=== PATIENT | female | born 1960 | race Caucasian/White ===

== ENCOUNTER 2023-06-21 22:43 | Inpatient (IN) | payer OTHER ==
[~2023-06-21] VITALS: Ht 165.1 cm; Wt 160.6 kg
[2023-06-21 22:50] VITALS: BP 131/65; PULSE 93; RESP 22; TEMP 98.2; O2SAT 99
[2023-06-21 23:14] VITALS: PULSE 86; RESP 24; O2SAT 97
[2023-06-21 23:53] LABS: BASOPHILS # (AUTO) 0.1 K/uL (0.00-0.22); BASOPHILS % (AUTO) 0.6 % (0.0-2.0); EOSINOPHILS # (AUTO) 0.3 K/uL (0-0.4); EOSINOPHILS % (AUTO) 3.2 % (0.0-4.0); HEMATOCRIT 27.7 % (36-48); HEMOGLOBIN 9.2 g/dL (12.0-16.0); LYMPHOCYTES # (AUTO) 1.6 K/uL (2.5-16.5); LYMPHOCYTES % (AUTO) 15.2 % (20.5-51.1); MEAN CORPUSCULAR HEMOGLOBIN 37 pg (27-31); MEAN CORPUSCULAR HGB CONC 33 g/dL (33-37); MONOCYTES # (AUTO) 1.1 K/uL (0.8-1.0); MONOCYTES % (AUTO) 10.3 % (1.7-9.3); NEUTROPHILS # (AUTO) 7.3 K/uL (1.8-7.7); NEUTROPHILS % (AUTO) 70.7 % (42.2-75.2); PLATELET COUNT (AUTO) 208 K/uL (140-450); RED BLOOD CELL COUNT(AUTO) 2.52 MIL/uL (4.20-5.40); RED CELL DISTRIBUTION WIDTH 19.2 % (11.6-13.7); WHITE BLOOD COUNT (AUTO) 10.3 K/uL (4.8-10.8)
[2023-06-22] VITALS (16 sets, daily range): BP systolic 86–155; BP diastolic 38–78; PULSE 50–90; RESP 14–23; TEMP 97.2–98.7; O2SAT 94–100
[2023-06-22 00:12] LABS: FLU A ANTIGEN negative (NEGATIVE); FLU B ANTIGEN negative (NEGATIVE)
[2023-06-22 00:15] LABS: ALBUMIN 2.2 g/dL (3.4-5.0); CARBON DIOXIDE 31.5 mmol/L (21-32); CREATININE 3.7 mg/dL (0.6-1.3); POTASSIUM 3.5 mmol/L (3.5-5.1); TOTAL BILIRUBIN 0.3 mg/dL (0.0-1.0); TOTAL PROTEIN, SERUM 7.6 g/dL (6.4-8.2)
[2023-06-22 00:29] LABS: CALCIUM 12.5 mg/dL (8.5-10.1)
[2023-06-22] MEDS ORDERED: MORPHINE SULFATE 4 MG/ML SYR IVP ONE (01:10)
[2023-06-22] MEDS ORDERED: VANCOMYCIN 1,000 MG in DEXTROSE 5% 250 ML IV ONE (01:15)
[2023-06-22] MEDS ORDERED: AZITHROMYCIN 500 MG in DEXTROSE 5% 250 ML IV ONE (01:15)
[2023-06-22] MEDS ORDERED: AZTREONAM 2,000 MG in DEXTROSE 5% 100 ML IV SCH (01:15)
[2023-06-22] MEDS ORDERED: NACL 0.9% 1,000 ML IV ONE (01:20)
[2023-06-22] MEDS ORDERED: AZTREONAM 1,000 MG VIAL ONE (01:31)
[2023-06-22] MEDS ORDERED: AZITHROMYCIN 500 MG INJ VIAL IV ONE (02:28)
[2023-06-22] MEDS ORDERED: CLONIDINE HYDROCHLORIDE 0.1 MG TAB PO ONE (02:30)
[2023-06-22] MEDS ORDERED: ONDANSETRON 4 MG/2 ML VIAL IVP ONE (02:30)
[2023-06-22] MEDS ORDERED: HYDROcodone/APAP 5/325 MG 1 TAB TAB PO ONE (02:30)
[2023-06-22] MEDS ORDERED: MORPHINE SULFATE 2 MG/ML SYR IVP PRN (02:50)
[2023-06-22] MEDS ORDERED: CLONIDINE HYDROCHLORIDE 0.1 MG TAB GT PRN (02:50)
[2023-06-22] MEDS ORDERED: VANCOMYCIN 1,000 MG VIAL ONE (02:57)
[2023-06-22 03:10] LABS: APPEARANCE,URINE HAZY (CLEAR); BILIRUBIN,URINE NEGATIVE (NEGATIVE); BLOOD, URINE 2+ (NEGATIVE); COLOR,URINE YELLOW (YELLOW); LEUKOCYTE ESTERASE ,URINE 3+ (NEGATIVE); NITRITE, URINE POSITIVE (NEGATIVE); PROTEIN,URINE 2+ (NEGATIVE); UGLUCOSE NEGATIVE (NEGATIVE); UROBILINOGEN,URINE 0.2 EU/dL (0.2 - 1)
[2023-06-22 03:33] LABS: RBC,URINE 11-20 (MOD) /HPF (0-5)
[2023-06-22 03:34] LABS: BACTERIA,URINE 2+ /HPF (None Seen); CALCIUM OXALATE CRYSTALS,UR 0-10 /HPF (None Seen); SQUAMOUS EPITHELIAL CELL,UR 0-3 (FEW) /LPF (0-3 (FEW)); WBC,URINE >25 (MANY) /HPF (0-5)
[2023-06-22] MEDS ORDERED: MIDODRINE 5 MG TAB ONE ×3 (04:19→05:03)
[2023-06-22] MEDS ORDERED: CRUSHER, PILL MC ONE (04:21)
[2023-06-22] MEDS ORDERED: NOREPINEPHRINE 4 MG in DEXTROSE 5% 250 ML IV PRN (04:45)
[2023-06-22] MEDS ORDERED: NOREPINEPHRINE 4 MG/4 ML VIAL IV ONE ×2 (04:48)
[2023-06-22] MEDS ORDERED: BUS5 GT (05:00)
[2023-06-22] MEDS ORDERED: ASPI-1822 GT (05:00)
[2023-06-22] MEDS ORDERED: LEVO0.155 GT (05:00)
[2023-06-22] MEDS ORDERED: PRO5 GT (05:00)
[2023-06-22] MEDS ORDERED: TRAZ-471 GT (05:00)
[2023-06-22] MEDS ORDERED: MONT-72 GT (05:00)
[2023-06-22] MEDS ORDERED: KEP500L GT (05:00)
[2023-06-22] MEDS ORDERED: HEPA500056 SQ (05:00)
[2023-06-22] MEDS ORDERED: GABA-636 GT (05:00)
[2023-06-22] MEDS ORDERED: LANS15EC28 GT (05:00)
[2023-06-22] MEDS ORDERED: AMIO200T62 GT (05:00)
[2023-06-22] MEDS ORDERED: ALBUMIN HUMAN 25% 100 ML IV ONE ×2 (05:15)
[2023-06-22] MEDS ORDERED: MIDODRINE 5 MG TAB PO SCH (07:00)
[2023-06-22] MEDS: MIDODRINE 5 MG TAB GT SCH ×3 (07:00→18:26)
[2023-06-22] MEDS: ALBUTEROL SULFATE/IPRATROPIU 3 ML SOL IH SCH ×3 (07:42→20:51)
[2023-06-22] MEDS ORDERED: NON-FORMULARY ITEM (Trazodone HCl 100 MG) GT SCH (09:00)
[2023-06-22] MEDS ORDERED: MIDODRINE 5 MG TAB GT SCH (09:00)
[2023-06-22] MEDS: AMIODARONE 200 MG TAB GT SCH (09:00)
[2023-06-22] MEDS: ASPIRIN 81 MG TAB.CHEW GT SCH (10:15)
[2023-06-22] MEDS: busPIRone 5 MG TAB GT SCH ×3 (10:15→18:26)
[2023-06-22] MEDS: GABAPENTIN 100 MG CAP GT SCH (10:16)
[2023-06-22] MEDS: levETIRAcetam 100 MG/ML ORASYR GT SCH ×2 (10:16→21:22)
[2023-06-22] MEDS: MONTELUKAST SODIUM 10 MG TAB GT SCH (10:16)
[2023-06-22] MEDS: ACETAMINOPHEN 650 MG/20.3 ML UDC PO PRN (10:17)
[2023-06-22] MEDS ORDERED: LEVOTHYROXINE 0.05 MG TAB ONE (10:31)
[2023-06-22] MEDS ORDERED: LEVOTHYROXINE 0.1 MG TAB ONE (10:31)
[2023-06-22] MEDS: LEVOTHYROXINE 0.075 MG TAB GT SCH (10:32)
[2023-06-22] MEDS: NOREPINEPHRINE 4 MG in DEXTROSE 5% 250 ML IV PRN ×3 (13:46→21:58)
[2023-06-22] MEDS: HYDROcodone/APAP 5/325 MG 1 TAB TAB GT PRN (13:58)
[2023-06-22] MEDS: MORPHINE SULFATE 2 MG/ML SYR IVP PRN (18:35)
[2023-06-22] MEDS: traZODone 50 MG TAB GT SCH (21:23)
[2023-06-23] VITALS (44 sets, daily range): BP systolic 59–176; BP diastolic 22–104; PULSE 61–123; RESP 14–33; TEMP 95.1–98.4; O2SAT 87–100
[2023-06-23] MEDS: ALBUTEROL SULFATE/IPRATROPIU 3 ML SOL IH SCH ×5 (01:08→23:55)
[2023-06-23] MEDS: NOREPINEPHRINE 4 MG in DEXTROSE 5% 250 ML IV PRN ×4 (01:42→12:05)
[2023-06-23] MEDS: MORPHINE SULFATE 2 MG/ML SYR IVP PRN ×3 (03:19→23:29)
[2023-06-23] MEDS: MIDODRINE 5 MG TAB GT SCH ×2 (06:01→12:06)
[2023-06-23] MEDS ORDERED: NOREPINEPHRINE 4 MG/4 ML VIAL IV ONE (06:20)
[2023-06-23 08:59] LABS: BASOPHILS # (AUTO) 0.1 K/uL (0.00-0.22); BASOPHILS % (AUTO) 0.5 % (0.0-2.0); EOSINOPHILS # (AUTO) 0.4 K/uL (0-0.4); EOSINOPHILS % (AUTO) 2.9 % (0.0-4.0); HEMATOCRIT 26.8 % (36-48); LYMPHOCYTES # (AUTO) 1.1 K/uL (2.5-16.5); LYMPHOCYTES % (AUTO) 9.2 % (20.5-51.1); MEAN CORPUSCULAR HEMOGLOBIN 36 pg (27-31); MEAN CORPUSCULAR HGB CONC 34 g/dL (33-37); MEAN CORPUSCULAR VOLUME 108.3 fL (80-94); MONOCYTES # (AUTO) 1.2 K/uL (0.8-1.0); MONOCYTES % (AUTO) 10.1 % (1.7-9.3); NEUTROPHILS # (AUTO) 9.5 K/uL (1.8-7.7); NEUTROPHILS % (AUTO) 77.3 % (42.2-75.2); PLATELET COUNT (AUTO) 210 K/uL (140-450); RED BLOOD CELL COUNT(AUTO) 2.48 MIL/uL (4.20-5.40); RED CELL DISTRIBUTION WIDTH 19.3 % (11.6-13.7); WHITE BLOOD COUNT (AUTO) 12.2 K/uL (4.8-10.8)
[2023-06-23] MEDS: levETIRAcetam 100 MG/ML ORASYR GT SCH ×2 (09:13→20:34)
[2023-06-23] MEDS: AMIODARONE 200 MG TAB GT SCH (09:13)
[2023-06-23] MEDS: ASPIRIN 81 MG TAB.CHEW GT SCH ×2 (09:14→09:19)
[2023-06-23] MEDS: GABAPENTIN 100 MG CAP GT SCH (09:15)
[2023-06-23] MEDS: busPIRone 5 MG TAB GT SCH ×3 (09:17→17:53)
[2023-06-23] MEDS: HYDROcodone/APAP 5/325 MG 1 TAB TAB GT PRN (09:17)
[2023-06-23 09:20] LABS: ANION GAP 13.8 (8-16); CARBON DIOXIDE 27.6 mmol/L (21-32); POTASSIUM 3.4 mmol/L (3.5-5.1)
[2023-06-23 09:28] LABS: CALCIUM 12.2 mg/dL (8.5-10.1); CREATININE 4.1 mg/dL (0.6-1.3)
[2023-06-23] MEDS: LEVOTHYROXINE 0.075 MG TAB GT SCH (09:43)
[2023-06-23] MEDS: MONTELUKAST SODIUM 10 MG TAB GT SCH (09:44)
[2023-06-23] MEDS ORDERED: NYSTATIN POW 100 MU/GM 15 GM BTL TP PRN (12:30)
[2023-06-23] MEDS ORDERED: ALGINATE ROPE MC PRN (12:30)
[2023-06-23] MEDS ORDERED: Z-GUARD PASTE TP PRN (12:30)
[2023-06-23] MEDS ORDERED: FOAM DRESSING TP PRN (12:30)
[2023-06-23] MEDS: Z-GUARD PASTE TP SCH (13:00)
[2023-06-23] MEDS ORDERED: VANCOMYCIN PER PHARMACY MC PRN ×2 (13:25→13:30)
[2023-06-23] MEDS: ALGINATE ROPE MC SCH (13:52)
[2023-06-23] MEDS: FOAM DRESSING TP SCH (13:53)
[2023-06-23] MEDS: NYSTATIN POW 100 MU/GM 15 GM BTL TP SCH (14:55)
[2023-06-23] MEDS: AZITHROMYCIN 500 MG in DEXTROSE 5% 250 ML IV SCH (16:28)
[2023-06-23] MEDS: NOREPINEPHRINE 16 MG in DEXTROSE 5% 250 ML IV PRN ×2 (16:33→18:21)
[2023-06-23] MEDS: AZTREONAM 2,000 MG in DEXTROSE 5% 100 ML IV SCH (17:50)
[2023-06-23] MEDS ORDERED: VANCOMYCIN 1,000 MG in DEXTROSE 5% 250 ML IV SCH (18:00)
[2023-06-23] MEDS: traZODone 50 MG TAB GT SCH (20:34)
[2023-06-23] MEDS ORDERED: MIDODRINE 5 MG TAB GT SCH (21:00)
[2023-06-23] MEDS ORDERED: EPOETIN ALFA-EPBX 10,000 UNITS/ML VIAL ONE (22:30)
[2023-06-23] MEDS: EPOETIN ALFA-EPBX 10,000 UNITS/ML VIAL IV SCH (23:15)
[2023-06-24] VITALS (32 sets, daily range): BP systolic 88–160; BP diastolic 54–78; PULSE 70–90; RESP 16–31; TEMP 96.7–98.3; O2SAT 95–100
[2023-06-24] MEDS: Z-GUARD PASTE TP SCH ×2 (01:04→13:00)
[2023-06-24] MEDS: NYSTATIN POW 100 MU/GM 15 GM BTL TP SCH ×2 (01:04→13:00)
[2023-06-24] MEDS: AZTREONAM 2,000 MG in DEXTROSE 5% 100 ML IV SCH ×2 (02:27→16:07)
[2023-06-24] MEDS: HYDROcodone/APAP 5/325 MG 1 TAB TAB GT PRN ×3 (03:07→20:21)
[2023-06-24 05:19] LABS: ANION GAP 12.4 (8-16); CALCIUM 11.4 mg/dL (8.5-10.1); CARBON DIOXIDE 26.8 mmol/L (21-32); CREATININE 2.9 mg/dL (0.6-1.3); POTASSIUM 3.2 mmol/L (3.5-5.1)
[2023-06-24 05:20] LABS: BASOPHILS % (AUTO) 0.2 % (0.0-2.0); EOSINOPHILS # (AUTO) 0.4 K/uL (0-0.4); EOSINOPHILS % (AUTO) 3.2 % (0.0-4.0); HEMATOCRIT 24.9 % (36-48); HEMOGLOBIN 8.4 g/dL (12.0-16.0); LYMPHOCYTES # (AUTO) 1.1 K/uL (2.5-16.5); LYMPHOCYTES % (AUTO) 9.2 % (20.5-51.1); MEAN CORPUSCULAR HEMOGLOBIN 37 pg (27-31); MEAN CORPUSCULAR HGB CONC 34 g/dL (33-37); MEAN CORPUSCULAR VOLUME 109.2 fL (80-94); MONOCYTES # (AUTO) 1.3 K/uL (0.8-1.0); MONOCYTES % (AUTO) 10.8 % (1.7-9.3); NEUTROPHILS % (AUTO) 76.6 % (42.2-75.2); PLATELET COUNT (AUTO) 177 K/uL (140-450); RED BLOOD CELL COUNT(AUTO) 2.28 MIL/uL (4.20-5.40); RED CELL DISTRIBUTION WIDTH 18.7 % (11.6-13.7); WHITE BLOOD COUNT (AUTO) 11.7 K/uL (4.8-10.8)
[2023-06-24] MEDS ORDERED: MAG SULF 2000 MG/WATER PREMIX 50 ML IV PRN (06:00)
[2023-06-24] MEDS ORDERED: ACETAMINOPHEN 325 MG TAB PO PRN (06:00)
[2023-06-24] MEDS ORDERED: DOCUSATE SODIUM 100 MG GELCAP PO PRN (06:00)
[2023-06-24] MEDS ORDERED: POTASSIUM CHLORIDE 10 MEQ TABER PO PRN (06:00)
[2023-06-24] MEDS ORDERED: ZOLPIDEM 10 MG TAB PO PRN (06:00)
[2023-06-24] MEDS: levETIRAcetam 100 MG/ML ORASYR GT SCH ×2 (08:56→20:18)
[2023-06-24] MEDS: busPIRone 5 MG TAB GT SCH ×3 (08:56→17:09)
[2023-06-24] MEDS: LEVOTHYROXINE 0.075 MG TAB GT SCH (08:57)
[2023-06-24] MEDS: MIDODRINE 5 MG TAB GT SCH ×3 (08:57→17:09)
[2023-06-24] MEDS: AMIODARONE 200 MG TAB GT SCH (08:58)
[2023-06-24] MEDS: GABAPENTIN 100 MG CAP GT SCH (08:58)
[2023-06-24] MEDS: MONTELUKAST SODIUM 10 MG TAB GT SCH (08:59)
[2023-06-24] MEDS: PANTOPRAZOLE 40 MG INJ VIAL IVP SCH (09:00)
[2023-06-24] MEDS: ALBUTEROL SULFATE/IPRATROPIU 3 ML SOL IH SCH ×3 (12:58→19:03)
[2023-06-24] MEDS: ALGINATE ROPE MC SCH (13:00)
[2023-06-24] MEDS: FOAM DRESSING TP SCH (13:00)
[2023-06-24] MEDS: ACETAMINOPHEN 650 MG/20.3 ML UDC PO PRN (14:10)
[2023-06-24] MEDS: AZITHROMYCIN 500 MG in DEXTROSE 5% 250 ML IV SCH (14:12)
[2023-06-24] MEDS: NOREPINEPHRINE 16 MG in DEXTROSE 5% 250 ML IV PRN (18:49)
[2023-06-24] MEDS: traZODone 50 MG TAB GT SCH (20:20)
[2023-06-24] MEDS: MEROPENEM 500 MG in NACL 0.9% 50 ML IV SCH (20:22)
[2023-06-25] VITALS (45 sets, daily range): BP systolic 95–169; BP diastolic 52–107; PULSE 68–100; RESP 16–45; TEMP 97.2–98.8; O2SAT 93–100
[2023-06-25] MEDS: ALBUTEROL SULFATE/IPRATROPIU 3 ML SOL IH SCH ×4 (00:28→19:34)
[2023-06-25] MEDS: MORPHINE SULFATE 2 MG/ML SYR IVP PRN ×3 (01:23→19:27)
[2023-06-25] MEDS: NYSTATIN POW 100 MU/GM 15 GM BTL TP SCH ×2 (01:31→13:12)
[2023-06-25] MEDS: Z-GUARD PASTE TP SCH ×2 (01:32→13:12)
[2023-06-25 06:30] LABS: BASOPHILS # (AUTO) 0.1 K/uL (0.00-0.22); BASOPHILS % (AUTO) 0.6 % (0.0-2.0); EOSINOPHILS # (AUTO) 0.6 K/uL (0-0.4); HEMATOCRIT 24.4 % (36-48); HEMOGLOBIN 8.2 g/dL (12.0-16.0); LYMPHOCYTES # (AUTO) 1.2 K/uL (2.5-16.5); LYMPHOCYTES % (AUTO) 10.5 % (20.5-51.1); MEAN CORPUSCULAR HEMOGLOBIN 36 pg (27-31); MEAN CORPUSCULAR HGB CONC 34 g/dL (33-37); MEAN CORPUSCULAR VOLUME 107.7 fL (80-94); MONOCYTES # (AUTO) 1.2 K/uL (0.8-1.0); MONOCYTES % (AUTO) 10.6 % (1.7-9.3); NEUTROPHILS # (AUTO) 8.1 K/uL (1.8-7.7); NEUTROPHILS % (AUTO) 73.3 % (42.2-75.2); PLATELET COUNT (AUTO) 184 K/uL (140-450); RED BLOOD CELL COUNT(AUTO) 2.27 MIL/uL (4.20-5.40); RED CELL DISTRIBUTION WIDTH 18.8 % (11.6-13.7)
[2023-06-25 06:42] LABS: ALBUMIN 1.9 g/dL (3.4-5.0); CARBON DIOXIDE 25.5 mmol/L (21-32); CREATININE 3.6 mg/dL (0.6-1.3); POTASSIUM 3.5 mmol/L (3.5-5.1); TOTAL BILIRUBIN 0.3 mg/dL (0.0-1.0); TOTAL PROTEIN, SERUM 6.6 g/dL (6.4-8.2)
[2023-06-25 06:45] LABS: CALCIUM 12.5 mg/dL (8.5-10.1)
[2023-06-25] MEDS: PANTOPRAZOLE 40 MG INJ VIAL IVP SCH (08:50)
[2023-06-25] MEDS: levETIRAcetam 100 MG/ML ORASYR GT SCH ×2 (08:50→21:30)
[2023-06-25] MEDS: EPOETIN ALFA-EPBX 10,000 UNITS/ML VIAL IV SCH (08:51)
[2023-06-25] MEDS: ASPIRIN 81 MG TAB.CHEW GT SCH (08:51)
[2023-06-25] MEDS: busPIRone 5 MG TAB GT SCH ×3 (08:52→17:44)
[2023-06-25] MEDS: MONTELUKAST SODIUM 10 MG TAB GT SCH (08:52)
[2023-06-25] MEDS: AMIODARONE 200 MG TAB GT SCH (08:52)
[2023-06-25] MEDS: MEROPENEM 500 MG in NACL 0.9% 50 ML IV SCH ×2 (08:54→21:31)
[2023-06-25] MEDS ORDERED: EPOETIN ALFA-EPBX 10,000 UNITS/ML VIAL IV SCH (09:00)
[2023-06-25] MEDS: MIDODRINE 5 MG TAB GT SCH ×3 (09:30→17:44)
[2023-06-25] MEDS: LEVOTHYROXINE 0.075 MG TAB GT SCH (09:30)
[2023-06-25] MEDS: GABAPENTIN 100 MG CAP GT SCH (09:32)
[2023-06-25] MEDS: ALGINATE ROPE MC SCH (13:12)
[2023-06-25] MEDS: FOAM DRESSING TP SCH (13:12)
[2023-06-25] MEDS: AZITHROMYCIN 500 MG in DEXTROSE 5% 250 ML IV SCH (13:17)
[2023-06-25] MEDS: ACETAMINOPHEN 650 MG/20.3 ML UDC PO PRN (14:16)
[2023-06-25] MEDS ORDERED: VANCOMYCIN 750 MG in DEXTROSE 5% 250 ML IV SCH (21:00)
[2023-06-25] MEDS: traZODone 50 MG TAB GT SCH (21:30)
[2023-06-26] VITALS (33 sets, daily range): BP systolic 87–154; BP diastolic 30–96; PULSE 59–92; RESP 19–30; TEMP 97.1–98.6; O2SAT 92–100
[2023-06-26] MEDS: Z-GUARD PASTE TP SCH ×2 (01:00→13:43)
[2023-06-26] MEDS: NYSTATIN POW 100 MU/GM 15 GM BTL TP SCH ×2 (01:00→13:44)
[2023-06-26] MEDS: ALBUTEROL SULFATE/IPRATROPIU 3 ML SOL IH SCH ×4 (02:01→19:10)
[2023-06-26] MEDS: MORPHINE SULFATE 2 MG/ML SYR IVP PRN ×2 (02:23→09:40)
[2023-06-26 05:16] LABS: BASOPHILS % (AUTO) 0.4 % (0.0-2.0); EOSINOPHILS # (AUTO) 0.5 K/uL (0-0.4); EOSINOPHILS % (AUTO) 4.5 % (0.0-4.0); HEMATOCRIT 23.7 % (36-48); HEMOGLOBIN 8.1 g/dL (12.0-16.0); LYMPHOCYTES % (AUTO) 9.7 % (20.5-51.1); MEAN CORPUSCULAR HEMOGLOBIN 37 pg (27-31); MEAN CORPUSCULAR HGB CONC 34 g/dL (33-37); MEAN CORPUSCULAR VOLUME 108.4 fL (80-94); NEUTROPHILS # (AUTO) 8.3 K/uL (1.8-7.7); NEUTROPHILS % (AUTO) 76.4 % (42.2-75.2); PLATELET COUNT (AUTO) 190 K/uL (140-450); RED BLOOD CELL COUNT(AUTO) 2.19 MIL/uL (4.20-5.40); RED CELL DISTRIBUTION WIDTH 18.7 % (11.6-13.7); WHITE BLOOD COUNT (AUTO) 10.8 K/uL (4.8-10.8)
[2023-06-26 05:27] LABS: ALBUMIN 1.9 g/dL (3.4-5.0); ANION GAP 12.2 (8-16); CALCIUM 11.9 mg/dL (8.5-10.1); CARBON DIOXIDE 26.6 mmol/L (21-32); CREATININE 2.9 mg/dL (0.6-1.3); POTASSIUM 3.8 mmol/L (3.5-5.1); TOTAL BILIRUBIN 0.2 mg/dL (0.0-1.0); TOTAL PROTEIN, SERUM 6.5 g/dL (6.4-8.2)
[2023-06-26] MEDS: busPIRone 5 MG TAB GT SCH ×3 (08:42→16:29)
[2023-06-26] MEDS: ASPIRIN 81 MG TAB.CHEW GT SCH (08:42)
[2023-06-26] MEDS: levETIRAcetam 100 MG/ML ORASYR GT SCH ×2 (08:43→20:21)
[2023-06-26] MEDS: GABAPENTIN 100 MG CAP GT SCH (08:43)
[2023-06-26] MEDS: MONTELUKAST SODIUM 10 MG TAB GT SCH (08:43)
[2023-06-26] MEDS: AMIODARONE 200 MG TAB GT SCH (08:44)
[2023-06-26] MEDS: LEVOTHYROXINE 0.075 MG TAB GT SCH (08:44)
[2023-06-26] MEDS: MIDODRINE 5 MG TAB GT SCH ×3 (08:44→16:28)
[2023-06-26] MEDS: PANTOPRAZOLE 40 MG INJ VIAL IVP SCH (08:45)
[2023-06-26] MEDS: MEROPENEM 500 MG in NACL 0.9% 50 ML IV SCH ×2 (08:47→20:22)
[2023-06-26] MEDS: FOAM DRESSING TP SCH (13:44)
[2023-06-26] MEDS: ALGINATE ROPE MC SCH (13:44)
[2023-06-26] MEDS: AZITHROMYCIN 500 MG in DEXTROSE 5% 250 ML IV SCH (13:58)
[2023-06-26] MEDS: traZODone 50 MG TAB GT SCH (20:22)
[2023-06-27] VITALS (33 sets, daily range): BP systolic 91–133; BP diastolic 45–86; PULSE 60–98; RESP 16–29; TEMP 96.8–98.1; O2SAT 94–98
[2023-06-27] MEDS: MORPHINE SULFATE 2 MG/ML SYR IVP PRN (01:11)
[2023-06-27] MEDS: Z-GUARD PASTE TP SCH ×2 (01:11→13:35)
[2023-06-27] MEDS: NYSTATIN POW 100 MU/GM 15 GM BTL TP SCH ×2 (01:12→13:35)
[2023-06-27] MEDS: ALBUTEROL SULFATE/IPRATROPIU 3 ML SOL IH SCH ×4 (01:21→19:17)
[2023-06-27 05:41] LABS: BASOPHILS % (AUTO) 0.3 % (0.0-2.0); EOSINOPHILS # (AUTO) 0.5 K/uL (0-0.4); EOSINOPHILS % (AUTO) 4.5 % (0.0-4.0); HEMATOCRIT 23.4 % (36-48); HEMOGLOBIN 7.9 g/dL (12.0-16.0); LYMPHOCYTES # (AUTO) 1.2 K/uL (2.5-16.5); LYMPHOCYTES % (AUTO) 11.5 % (20.5-51.1); MEAN CORPUSCULAR HEMOGLOBIN 37 pg (27-31); MEAN CORPUSCULAR HGB CONC 34 g/dL (33-37); MEAN CORPUSCULAR VOLUME 109.8 fL (80-94); MONOCYTES # (AUTO) 0.9 K/uL (0.8-1.0); NEUTROPHILS # (AUTO) 7.5 K/uL (1.8-7.7); NEUTROPHILS % (AUTO) 74.7 % (42.2-75.2); PLATELET COUNT (AUTO) 196 K/uL (140-450); RED BLOOD CELL COUNT(AUTO) 2.13 MIL/uL (4.20-5.40); RED CELL DISTRIBUTION WIDTH 19.1 % (11.6-13.7); WHITE BLOOD COUNT (AUTO) 10.1 K/uL (4.8-10.8)
[2023-06-27 06:18] LABS: ALBUMIN 1.9 g/dL (3.4-5.0); ANION GAP 12.6 (8-16); CARBON DIOXIDE 26.6 mmol/L (21-32); CREATININE 3.4 mg/dL (0.6-1.3); POTASSIUM 4.2 mmol/L (3.5-5.1); TOTAL BILIRUBIN 0.3 mg/dL (0.0-1.0); TOTAL PROTEIN, SERUM 6.5 g/dL (6.4-8.2)
[2023-06-27 06:22] LABS: CALCIUM 12.5 mg/dL (8.5-10.1)
[2023-06-27] MEDS: levETIRAcetam 100 MG/ML ORASYR GT SCH ×2 (08:48→20:37)
[2023-06-27] MEDS: PANTOPRAZOLE 40 MG INJ VIAL IVP SCH (08:49)
[2023-06-27] MEDS: busPIRone 5 MG TAB GT SCH ×3 (08:50→17:45)
[2023-06-27] MEDS: EPOETIN ALFA-EPBX 10,000 UNITS/ML VIAL IV SCH (08:50)
[2023-06-27] MEDS: MONTELUKAST SODIUM 10 MG TAB GT SCH (08:51)
[2023-06-27] MEDS: ASPIRIN 81 MG TAB.CHEW GT SCH (08:51)
[2023-06-27] MEDS: LEVOTHYROXINE 0.075 MG TAB GT SCH (08:51)
[2023-06-27] MEDS: GABAPENTIN 100 MG CAP GT SCH (08:51)
[2023-06-27] MEDS: MIDODRINE 5 MG TAB GT SCH ×3 (08:55→17:45)
[2023-06-27] MEDS: MEROPENEM 500 MG in NACL 0.9% 50 ML IV SCH ×2 (08:55→20:38)
[2023-06-27] MEDS: AMIODARONE 200 MG TAB GT SCH (09:00)
[2023-06-27] MEDS ORDERED: CRUSHER, PILL MC ONE (09:01)
[2023-06-27] MEDS: AZITHROMYCIN 500 MG in DEXTROSE 5% 250 ML IV SCH (13:27)
[2023-06-27] MEDS: NOREPINEPHRINE 16 MG in DEXTROSE 5% 250 ML IV PRN (13:30)
[2023-06-27] MEDS: FOAM DRESSING TP SCH (13:34)
[2023-06-27] MEDS: HYDROCORTISONE NA SUCC 100 MG/2 ML VIAL IV SCH ×2 (13:34→20:36)
[2023-06-27] MEDS: ALGINATE ROPE MC SCH (13:34)
[2023-06-27] MEDS: traZODone 50 MG TAB GT SCH (20:37)
[2023-06-28] VITALS (33 sets, daily range): BP systolic 95–151; BP diastolic 51–83; PULSE 54–88; RESP 16–29; TEMP 97–98.7; O2SAT 94–100
[2023-06-28] MEDS: Z-GUARD PASTE TP SCH ×2 (00:56→12:36)
[2023-06-28] MEDS: NYSTATIN POW 100 MU/GM 15 GM BTL TP SCH (00:56)
[2023-06-28] MEDS: ALBUTEROL SULFATE/IPRATROPIU 3 ML SOL IH SCH ×4 (00:56→19:29)
[2023-06-28 06:30] LABS: BASOPHILS % (AUTO) 0.3 % (0.0-2.0); EOSINOPHILS # (AUTO) 0.3 K/uL (0-0.4); EOSINOPHILS % (AUTO) 2.4 % (0.0-4.0); HEMATOCRIT 24.8 % (36-48); HEMOGLOBIN 8.3 g/dL (12.0-16.0); LYMPHOCYTES # (AUTO) 0.9 K/uL (2.5-16.5); LYMPHOCYTES % (AUTO) 7.4 % (20.5-51.1); MEAN CORPUSCULAR HEMOGLOBIN 37 pg (27-31); MEAN CORPUSCULAR HGB CONC 34 g/dL (33-37); MONOCYTES # (AUTO) 0.9 K/uL (0.8-1.0); MONOCYTES % (AUTO) 7.3 % (1.7-9.3); NEUTROPHILS # (AUTO) 10.5 K/uL (1.8-7.7); NEUTROPHILS % (AUTO) 82.6 % (42.2-75.2); PLATELET COUNT (AUTO) 200 K/uL (140-450); RED BLOOD CELL COUNT(AUTO) 2.27 MIL/uL (4.20-5.40); WHITE BLOOD COUNT (AUTO) 12.7 K/uL (4.8-10.8)
[2023-06-28 07:02] LABS: ALBUMIN 2.1 g/dL (3.4-5.0); CARBON DIOXIDE 28.4 mmol/L (21-32); CREATININE 2.8 mg/dL (0.6-1.3); POTASSIUM 4.4 mmol/L (3.5-5.1); TOTAL BILIRUBIN 0.3 mg/dL (0.0-1.0); TOTAL PROTEIN, SERUM 7.2 g/dL (6.4-8.2)
[2023-06-28] MEDS: HYDROCORTISONE NA SUCC 100 MG/2 ML VIAL IV SCH ×3 (07:31→20:16)
[2023-06-28] MEDS: levETIRAcetam 100 MG/ML ORASYR GT SCH ×2 (08:26→20:15)
[2023-06-28] MEDS: MIDODRINE 5 MG TAB GT SCH ×3 (08:28→17:33)
[2023-06-28] MEDS: LEVOTHYROXINE 0.075 MG TAB GT SCH (08:28)
[2023-06-28] MEDS: ASPIRIN 81 MG TAB.CHEW GT SCH (08:28)
[2023-06-28] MEDS: GABAPENTIN 100 MG CAP GT SCH (08:29)
[2023-06-28] MEDS: busPIRone 5 MG TAB GT SCH ×3 (08:30→17:33)
[2023-06-28] MEDS: AMIODARONE 200 MG TAB GT SCH (08:32)
[2023-06-28] MEDS: MONTELUKAST SODIUM 10 MG TAB GT SCH (08:32)
[2023-06-28] MEDS: MEROPENEM 500 MG in NACL 0.9% 50 ML IV SCH ×2 (08:35→20:15)
[2023-06-28] MEDS: PANTOPRAZOLE 40 MG INJ VIAL IVP SCH (08:35)
[2023-06-28] MEDS: HYDROcodone/APAP 5/325 MG 1 TAB TAB GT PRN (09:06)
[2023-06-28] MEDS ORDERED: ALBUMIN HUMAN 25% 50 ML IV ONE (10:10)
[2023-06-28] MEDS ORDERED: ALBUMIN HUMAN 25% 200 ML IV ONE (11:15)
[2023-06-28] MEDS: FOAM DRESSING TP SCH (12:36)
[2023-06-28] MEDS: ALGINATE ROPE MC SCH (12:37)
[2023-06-28] MEDS: NOREPINEPHRINE 16 MG in DEXTROSE 5% 250 ML IV PRN (14:39)
[2023-06-28] MEDS ORDERED: DOCUSATE 100 MG/10 ML UDC PO PRN (15:30)
[2023-06-28] MEDS: traZODone 50 MG TAB GT SCH (20:15)
[2023-06-29] VITALS (24 sets, daily range): BP systolic 94–157; BP diastolic 54–100; PULSE 50–95; RESP 18–28; TEMP 96.8–98.6; O2SAT 95–98
[2023-06-29] MEDS: Z-GUARD PASTE TP SCH ×2 (00:24→13:06)
[2023-06-29] MEDS: MORPHINE SULFATE 2 MG/ML SYR IVP PRN ×2 (01:10→21:37)
[2023-06-29] MEDS: ALBUTEROL SULFATE/IPRATROPIU 3 ML SOL IH SCH ×4 (01:39→19:40)
[2023-06-29 03:52] LABS: BASOPHILS % (AUTO) 0.1 % (0.0-2.0); EOSINOPHILS # (AUTO) 0.1 K/uL (0-0.4); EOSINOPHILS % (AUTO) 0.5 % (0.0-4.0); HEMATOCRIT 21.8 % (36-48); HEMOGLOBIN 7.2 g/dL (12.0-16.0); LYMPHOCYTES # (AUTO) 0.9 K/uL (2.5-16.5); LYMPHOCYTES % (AUTO) 8.1 % (20.5-51.1); MEAN CORPUSCULAR HEMOGLOBIN 37 pg (27-31); MEAN CORPUSCULAR HGB CONC 33 g/dL (33-37); MEAN CORPUSCULAR VOLUME 110.7 fL (80-94); MONOCYTES # (AUTO) 0.7 K/uL (0.8-1.0); MONOCYTES % (AUTO) 6.1 % (1.7-9.3); NEUTROPHILS # (AUTO) 9.5 K/uL (1.8-7.7); NEUTROPHILS % (AUTO) 85.2 % (42.2-75.2); PLATELET COUNT (AUTO) 181 K/uL (140-450); RED BLOOD CELL COUNT(AUTO) 1.97 MIL/uL (4.20-5.40); RED CELL DISTRIBUTION WIDTH 19.7 % (11.6-13.7); WHITE BLOOD COUNT (AUTO) 11.2 K/uL (4.8-10.8)
[2023-06-29 04:18] LABS: ALBUMIN 2.5 g/dL (3.4-5.0); ANION GAP 11.9 (8-16); CARBON DIOXIDE 28.6 mmol/L (21-32); CREATININE 3.3 mg/dL (0.6-1.3); POTASSIUM 4.5 mmol/L (3.5-5.1); TOTAL BILIRUBIN 0.2 mg/dL (0.0-1.0); TOTAL PROTEIN, SERUM 6.7 g/dL (6.4-8.2)
[2023-06-29] MEDS: HYDROCORTISONE NA SUCC 100 MG/2 ML VIAL IV SCH ×3 (04:32→20:44)
[2023-06-29] MEDS: busPIRone 5 MG TAB GT SCH ×3 (08:32→17:45)
[2023-06-29] MEDS: MIDODRINE 5 MG TAB GT SCH ×3 (08:33→17:44)
[2023-06-29] MEDS: levETIRAcetam 100 MG/ML ORASYR GT SCH ×2 (08:33→20:44)
[2023-06-29] MEDS: PANTOPRAZOLE 40 MG INJ VIAL IVP SCH (08:33)
[2023-06-29] MEDS: MONTELUKAST SODIUM 10 MG TAB GT SCH (08:34)
[2023-06-29] MEDS: LEVOTHYROXINE 0.075 MG TAB GT SCH (08:34)
[2023-06-29] MEDS: GABAPENTIN 100 MG CAP GT SCH (08:34)
[2023-06-29] MEDS: ASPIRIN 81 MG TAB.CHEW GT SCH (08:34)
[2023-06-29] MEDS: MEROPENEM 500 MG in NACL 0.9% 50 ML IV SCH ×2 (09:04→20:45)
[2023-06-29] MEDS: AMIODARONE 200 MG TAB GT SCH (09:04)
[2023-06-29] MEDS: POLYETHYLENE GLYCOL 17 GM/PKT PO SCH (10:12)
[2023-06-29] MEDS: SENNA 8.6 MG TAB PO SCH ×3 (10:12→17:45)
[2023-06-29] MEDS: ALGINATE ROPE MC SCH (13:00)
[2023-06-29] MEDS: FOAM DRESSING TP SCH (13:06)
[2023-06-29] MEDS: traZODone 50 MG TAB GT SCH (20:45)
[2023-06-30] VITALS (10 sets, daily range): BP systolic 126–149; BP diastolic 71–80; PULSE 46–75; RESP 19–30; TEMP 96.8–98.1; O2SAT 94–98
[2023-06-30] MEDS: Z-GUARD PASTE TP SCH (01:08)
[2023-06-30] MEDS: ALBUTEROL SULFATE/IPRATROPIU 3 ML SOL IH SCH ×3 (01:22→14:03)
[2023-06-30] MEDS: HYDROCORTISONE NA SUCC 100 MG/2 ML VIAL IV SCH ×2 (04:51→13:25)
[2023-06-30] MEDS: MONTELUKAST SODIUM 10 MG TAB GT SCH (08:53)
[2023-06-30] MEDS: SENNA 8.6 MG TAB PO SCH ×2 (08:53→12:28)
[2023-06-30] MEDS: AMIODARONE 200 MG TAB GT SCH (08:53)
[2023-06-30] MEDS: MIDODRINE 5 MG TAB GT SCH ×2 (08:53→12:28)
[2023-06-30] MEDS: EPOETIN ALFA-EPBX 10,000 UNITS/ML VIAL IV SCH (08:54)
[2023-06-30] MEDS: levETIRAcetam 100 MG/ML ORASYR GT SCH (08:54)
[2023-06-30] MEDS: GABAPENTIN 100 MG CAP GT SCH (08:54)
[2023-06-30] MEDS: LEVOTHYROXINE 0.075 MG TAB GT SCH (08:54)
[2023-06-30] MEDS: PANTOPRAZOLE 40 MG INJ VIAL IVP SCH (08:54)
[2023-06-30] MEDS: ASPIRIN 81 MG TAB.CHEW GT SCH (08:55)
[2023-06-30] MEDS: POLYETHYLENE GLYCOL 17 GM/PKT PO SCH (08:55)
[2023-06-30] MEDS ORDERED: VIT-B COMP/VIT-C/FOLIC ACID 1 TAB PO SCH (09:00)
[2023-06-30] MEDS: MEROPENEM 500 MG in NACL 0.9% 50 ML IV SCH (09:06)
[2023-06-30] MEDS: MORPHINE SULFATE 2 MG/ML SYR IVP PRN (09:52)
[2023-06-30] MEDS ORDERED: busPIRone 5 MG TAB GT SCH (13:10)
[2023-06-30] MEDS ORDERED: MERO1VIA15 IV (13:26)
[2023-06-30] MEDS ORDERED: PRO5 GT (13:26)
[2023-06-30] MEDS ORDERED: NEP PO (13:26)
[2023-06-30] MEDS ORDERED: TRAZ-466 GT (13:26)
[2023-06-30] MEDS ORDERED: BUS5 GT (13:26)
[2023-06-30] MEDS ORDERED: SENN-74 PO (13:26)
[2023-06-30] MEDS ORDERED: POLY17PD46 PO (13:26)
[2023-06-30] MEDS ORDERED: Foam Dressing TP ×2 (13:26)
[2023-06-30] MEDS ORDERED: [UNRECOGNIZED DRUG - CODE] IV (13:26)
[2023-06-30] MEDS ORDERED: ZOLP10TA1 PO (13:26)
[2023-06-30] MEDS ORDERED: CLON0.1T16 GT (13:26)
[2023-06-30] MEDS ORDERED: SC100I IV (13:26)
== END 2023-06-30 16:25 | DRG 870 ==
LOC: MED 22:43 → MTU 06-22 02:42 → MIC 06-22 11:59 → MTU 06-29 18:45
PROVIDERS: ADMIT Internal Medicine; ATTEND Internal Medicine
PROC: 5A1955Z Respiratory Ventilation, Greater than 96 Consecutive Hours (ICD-10-PCS; 2023-06-22)
PROC: 05H333Z Insertion of Infusion Device into Right Innominate Vein, Percutaneous Approach (ICD-10-PCS; principal; 2023-06-25)
PROC: B54MZZA Ultrasonography of Right Upper Extremity Veins, Guidance (ICD-10-PCS; 2023-06-25)
DX: A41.9 Sepsis, unspecified organism (principal); E43 Unspecified severe protein-calorie malnutrition; G93.41 Metabolic encephalopathy; J69.0 Pneumonitis due to inhalation of food and vomit; J96.21 Acute and chronic respiratory failure with hypoxia; N18.6 End stage renal disease; R65.21 Severe sepsis with septic shock; E27.40 Unspecified adrenocortical insufficiency; N39.0 Urinary tract infection, site not specified; Z99.11 Dependence on respirator [ventilator] status; Z68.43 Body mass index [BMI] 50.0-59.9, adult; R57.9 Shock, unspecified; E66.01 Morbid (severe) obesity due to excess calories; Z20.822 Contact with and (suspected) exposure to COVID-19; F32.A Depression, unspecified; E83.52 Hypercalcemia; F41.9 Anxiety disorder, unspecified; Z99.2 Dependence on renal dialysis; Z88.1 Allergy status to other antibiotic agents; Z88.8 Allergy status to other drugs, medicaments and biological substances; Z79.899 Other long term (current) drug therapy; Z93.0 Tracheostomy status
CPT/HCPCS: 36415; 71045; 76705; 80048; 80053; 80202; 81001; 82306; 82533; 82948; 83605; 83880; 83970; 84484; 85025; 87040; 87081; 87086; 93005; 93971; 94002; 94003; 94640; 96365; 96368; 96375; 99291; C9113; J0456; J1644; J1720; J2185; J2270; J3370; J3490; J7060; P9046; Q0092; Q5106